=== PATIENT | male | born 1990 | race Hispanic/Latino ===

== ENCOUNTER → 2017-04-20 | Outpatient (CLI) | payer OTHER ==
--- NOTE | 2017-04-20 17:22 | Diagnostic Imaging Report ---
PROCEDURE:TESTICULAR ULTRASOUND with Dopplers COMPARISON:None. INDICATIONS:TESTICULAR PAIN (RT) TECHNIQUE: Riley-scale and color doppler images of the testicles and scrotal contents were obtained. Duplex imaging with spectral waveform analysis was performed of the testicular arteries and veins. FINDINGS: RIGHT SCROTUM: Testicle: 4.0 x 1.7 x 3.0 cm. Uniform echotexture. Epididymal head: 0.6 x 0.7 x 0.8 cm. Hydrocele: None. Varicocele: None. LEFT SCROTUM: Testicle: 3.9 x 1.8 x 2.1 cm. Uniform echotexture. Epididymal head: 1.0 x 1.1 x 0.7 cm. Hydrocele: None. Varicocele: None. CONCLUSION: Normal testicular ultrasound. Dictated by: Daron Wright M.D. on 04/20/2017 at 17:21 Electronically approved by: Daron Wright M.D. on 04/20/2017 at 17:21
--- NOTE | 2017-04-20 17:24 | Diagnostic Imaging Report ---
PROCEDURE:TESTICULAR DOPPLER ULTRASOUND COMPARISON:None. INDICATIONS:TESTICULAR PAIN (RT) TECHNIQUE: Riley-scale and color doppler images of the testicles and scrotal contents were obtained. Duplex imaging with spectral waveform analysis was performed of the testicular arteries and veins. FINDINGS: Please see testicular ultrasound on the same date for a combined dictation. CONCLUSION: Please see testicular ultrasound on the same date for a combined dictation. Dictated by: Daron Wright M.D. on 04/20/2017 at 17:22 Electronically approved by: Daron Wright M.D. on 04/20/2017 at 17:22
== END ==
LOC: US 15:31
PROVIDERS: ATTEND Family Medicine
DX: N50.9 Disorder of male genital organs, unspecified (principal)
CPT/HCPCS: 76870; 93976